=== PATIENT | female | born 1960 | race Caucasian/White ===

== ENCOUNTER 2020-03-31 10:29 | Emergency (ER) | payer MEDICARE, OTHER ==
[~2020-03-31] VITALS: Ht 154.9 cm; Wt 72.0 kg
[2020-03-31 10:55] LABS: BILIRUBIN,URINE NEGATIVE (NEG); CLARITY,URINE CLEAR; COLOR,URINE YELLOW; NITRITE,URINE NEGATIVE (NEG); PROTEIN,URINE NEGATIVE (NEG-TRACE); UROBILINOGEN,URINE 0.2 mg/dL (0.2 mg/dL)
[2020-03-31 11:12] LABS: HYALINE CASTS, URINE FEW /HPF; SQUAMOUS EPITHELIAL CELL,UR MOD /LPF
[2020-03-31 11:13] LABS: BACTERIA,URINE 0 /HPF (0-FEW)
[2020-03-31 11:28] LABS: BASO # 0.1 x10^3/uL (0.0-0.2); BASO % 1 % (0-3); EOS # 0.2 x10^3/uL (0.0-0.7); EOS % 4 % (0-3); HEMATOCRIT 35.2 % (36.0-47.0); HEMOGLOBIN 11.9 g/dL (12.0-15.5); LYMPH # 2.1 x10^3/uL (1.0-4.8); LYMPH % 41 % (24-48); MEAN CORPUSCULAR HEMOGLOBIN 30 pg (25-35); MEAN CORPUSCULAR HGB CONC 34 g/dL (31-37); MEAN CORPUSCULAR VOLUME 88 fL (79-100); MONO # 0.5 x10^3/uL (0.0-1.1); MONO % 9 % (0-9); NEUT # 2.3 x10^3/uL (1.8-7.7); NEUT % 45 % (31-73); PLATELET COUNT 271 x10^3/uL (140-400); RED BLOOD COUNT 3.98 x10^6/uL (3.50-5.40); RED CELL DISTRIBUTION WIDTH 13.9 % (11.5-14.5); WHITE BLOOD COUNT 5.1 x10^3/uL (4.0-11.0)
[2020-03-31 11:33] LABS: CALCIUM 8.4 mg/dL (8.5-10.1); CREATININE 1.2 mg/dL (0.6-1.0); GFR 45.8; POTASSIUM 3.7 mmol/L (3.5-5.1)
[2020-03-31 11:39] LABS: ALBUMIN/GLOBULIN RATIO 0.9 (1.0-1.7); TOTAL BILIRUBIN 0.3 mg/dL (0.2-1.0); TOTAL PROTEIN 6.5 g/dL (6.4-8.2)
[2020-03-31] MEDS ORDERED: IV NORMAL SALINE 1000ML BAG 1,000 ML IV ONE (12:00)
--- NOTE | 2020-03-31 12:03 | RAD ---
EXAM: Chest, single view. HISTORY: Shortness of breath. COMPARISON: None. FINDINGS: A frontal view of the chest is obtained. There is no infiltrate, pleural effusion or pneumothorax. The heart is normal in size. IMPRESSION: No acute pulmonary finding. Electronically signed by: Alison Marie MD (03/31/2020 12:00 PM) [id number]
[2020-03-31 12:08] LABS: C-REACTIVE PROTEIN 18.1 mg/L (0-3.3)
[2020-03-31] MEDS ORDERED: KETOROLAC 30 MG/ML VIAL. IVP ONE (12:15)
[2020-03-31] MEDS ORDERED: DEXAMETHASONE SOD PHOS 4 MG/ML VIAL IVP ONE (13:00)
[2020-03-31 13:30] VITALS: BP 129/77
[2020-03-31] MEDS ORDERED: NITR100C62 PO (13:35)
--- NOTE | 2020-03-31 13:35 | PHYS DOC ---
Past Medical History Past Medical History: COPD, GERD, Hypertension, Hepatitis Past Surgical History: No Surgical History Smoking Status: Current Every Day Smoker Alcohol Use: Sober General Adult EDM: Chief Complaint: URINARY FREQUENCY HPI: HPI: Patient is a 59 year old [f__sex] who presents with [] Review of Systems: Review of Systems: Constitutional: Denies fever or chills. [] Eyes: Denies change in visual acuity. [] HENT: Denies nasal congestion or sore throat. [] Respiratory: Denies cough or shortness of breath. [] Cardiovascular: Denies chest pain or edema. [] GI: Denies abdominal pain, nausea, vomiting, bloody stools or diarrhea. [] : Denies dysuria. [] Musculoskeletal: Denies back pain or joint pain. [] Integument: Denies rash. [] Neurologic: Denies headache, focal weakness or sensory changes. [] Endocrine: Denies polyuria or polydipsia. [] Lymphatic: Denies swollen glands. [] Psychiatric: Denies depression or anxiety. [] Heart Score: Risk Factors: Risk Factors: DM, Current or recent (<one month) smoker, HTN, HLP, family history of CAD, obesity. Risk Scores: Score 0 - 3: 2.5% MACE over next 6 weeks - Discharge Home Score 4 - 6: 20.3% MACE over next 6 weeks - Admit for Clinical Observation Score 7 - 10: 72.7% MACE over next 6 weeks - Early Invasive Strategies Current Medications: Current Medications Medications (Trade) Dose Ordered Sig/Kandy Start Time Stop Time Status Last Admin Dose Admin Dexamethasone Sodium Phosphate (Decadron) 10 mg 1X ONCE 03/31/20 13:00 03/31/20 13:01 DC Ketorolac Tromethamine (Toradol 30mg Vial) 30 mg 1X ONCE 03/31/20 12:15 03/31/20 12:16 DC 03/31/20 12:32 30 MG Sodium Chloride 1,000 ml @ 1,000 mls/hr 1X ONCE 03/31/20 12:00 03/31/20 12:59 DC 03/31/20 12:32 1,000 MLS/HR Allergies: Allergies: Allergies Coded Allergies Type Severity Reaction Last Updated Verified Penicillins Allergy Unknown Rash 03/31/20 Yes aspirin Allergy Unknown Shortness of Air 03/31/20 Yes clarithromycin Allergy Unknown Nausea and Vomiting 03/31/20 Yes morphine Allergy Unknown Hives 03/31/20 Yes Physical Exam: PE: Constitutional: Well developed, well nourished, no acute distress, non-toxic appearance. [] HENT: Normocephalic, atraumatic, bilateral external ears normal, oropharynx moist, no oral exudates, nose normal. [] Eyes: PERRLA, EOMI, conjunctiva normal, no discharge. [] Neck: Normal range of motion, no tenderness, supple, no stridor. [] Cardiovascular:Heart rate regular rhythm, no murmur [] Lungs & Thorax: Bilateral breath sounds clear to auscultation [] Abdomen: Bowel sounds normal, soft, no tenderness, no masses, no pulsatile masses. [] Skin: Warm, dry, no erythema, no rash. [] Back: No tenderness, no CVA tenderness. [] Extremities: No tenderness, no cyanosis, no clubbing, ROM intact, no edema. [] Neurologic: Alert and oriented X 3, normal motor function, normal sensory function, no focal deficits noted. [] Psychologic: Affect normal, judgement normal, mood normal. [] Current Patient Data: Labs: Laboratory Tests Test 03/31/20 10:35 03/31/20 11:10 Urine Collection Type Unknown Urine Color Yellow Urine Clarity Clear Urine pH 6.0 (<5.0-8.0) Urine Specific [place] 1.020 (1.000-1.030) Urine Protein Negative mg/dL (NEG-TRACE) Urine Glucose (UA) Negative mg/dL (NEG) Urine Ketones (Stick) Negative mg/dL (NEG) Urine Blood Negative (NEG) Urine Nitrite Negative (NEG) Urine Bilirubin Negative (NEG) Urine Urobilinogen Dipstick 0.2 mg/dL (0.2 mg/dL) Urine Leukocyte Esterase Negative (NEG) Urine RBC 6-10 /HPF (0-2) Urine WBC 1-4 /HPF (0-4) Urine Squamous Epithelial Cells Mod /LPF Urine Bacteria 0 /HPF (0-FEW) Urine Hyaline Casts Few /HPF Urine Mucus Slight /LPF White Blood Count 5.1 x10^3/uL (4.0-11.0) Red Blood Count 3.98 x10^6/uL (3.50-5.40) Hemoglobin 11.9 g/dL (12.0-15.5) L Hematocrit 35.2 % (36.0-47.0) L Mean Corpuscular Volume 88 fL (79-100) Mean Corpuscular Hemoglobin 30 pg (25-35) Mean Corpuscular Hemoglobin Concent 34 g/dL (31-37) Red Cell Distribution Width 13.9 % (11.5-14.5) Platelet Count 271 x10^3/uL (140-400) Neutrophils (%) (Auto) 45 % (31-73) Lymphocytes (%) (Auto) 41 % (24-48) Monocytes (%) (Auto) 9 % (0-9) Eosinophils (%) (Auto) 4 % (0-3) H Basophils (%) (Auto) 1 % (0-3) Neutrophils # (Auto) 2.3 x10^3/uL (1.8-7.7) Lymphocytes # (Auto) 2.1 x10^3/uL (1.0-4.8) Monocytes # (Auto) 0.5 x10^3/uL (0.0-1.1) Eosinophils # (Auto) 0.2 x10^3/uL (0.0-0.7) Basophils # (Auto) 0.1 x10^3/uL (0.0-0.2) Sodium Level 141 mmol/L (136-145) Potassium Level 3.7 mmol/L (3.5-5.1) Chloride Level 106 mmol/L (98-107) Carbon Dioxide Level 27 mmol/L (21-32) Anion Gap 8 (6-14) Blood Urea Nitrogen 21 mg/dL (7-20) H Creatinine 1.2 mg/dL (0.6-1.0) H Estimated GFR (Cockcroft-Gault) 45.8 BUN/Creatinine Ratio 18 (6-20) Glucose Level 95 mg/dL (70-99) Calcium Level 8.4 mg/dL (8.5-10.1) L Total Bilirubin 0.3 mg/dL (0.2-1.0) Aspartate Amino Transferase (AST) 26 U/L (15-37) Alanine Aminotransferase (ALT) 25 U/L (14-59) Alkaline Phosphatase 88 U/L (46-116) Lactate Dehydrogenase 191 U/L (81-234) Troponin I Quantitative < 0.017 ng/mL (0.000-0.055) C-Reactive Protein, Quantitative 18.1 mg/L (0-3.3) H PC-Rqd-V-Type Natriuretic Peptide 314 pg/mL (0-124) H Total Protein 6.5 g/dL (6.4-8.2) Albumin 3.0 g/dL (3.4-5.0) L Albumin/Globulin Ratio 0.9 (1.0-1.7) L Laboratory Tests 03/31/20 11:10 Laboratory Tests 03/31/20 11:10 Vital Signs: Vital Signs Date Time Temp Pulse Resp B/P (MAP) Pulse Ox O2 Delivery O2 Flow Rate FiO2 03/31/20 10:35 98.5 99 20 127/75 (92) 96 Room Air 98.5 EKG: EKG: [] Radiology/Procedures: Radiology/Procedures: [] Course & Med Decision Making: Course & Med Decision Making Pertinent Labs and Imaging studies reviewed. (See chart for details) Patient is a 59 year old female with a history of COPD, polysubstance abuse, hypertension who presents to the Emergency Room complaining of wheezing, cough, back pain, dark urine, and tongue ulceration. Patient is requesting something for her back pain. She states this has been ongoing for almost two months. Patient is well appearing on exam. She does have an ulceration on her tongue. I have discussed with her that she needs to follow up with her PCP and may need to see an ENT physician for this. Patient got upset and stated, "you don't have one of those here in the Emergency Room." I explained to patient that in the Emergency Room we only have Emergency Physicians and that an ENT is a specialist that she would need to see outpatient for follow up. Given patient's other symptoms, lab work was ordered including lab to risk str atify patient for possible coronavirus 19. Patient did have some wheezing and coughing while I was in the room. UA shows a few white blood cells which will be treated with Macrobid. There is no signs of significant urinary tract infection at this time. It is likely that patient back pain is musculoskeletal in nature. Given that this is been ongoing for 2 months without change it is unlikely that this is acute pathology. Patient has not had any fever, numbness, weakness with her back pain. I have discussed with her that she will need to follow-up with her primary care doctor for further work-up on her back pain. I did recommend steroids for COPD exacerbation given her increased cough and shortness of breath. Patient got very upset at that time and stated "why would you give me steroids when I have osteoarthritis." She then stated "I am allergic to that I can't have it. Actually I'll take it but when I have a bad reaction I am going to chantal you for it." I discussed with patient that if she has concerns about taking steroids we will not prescribe them at this time. She states that she needs something for her back. She got very upset and frustrated yelling at staff. I discussed with patient that at this time everything appears to be normal and she will need to follow up with primary care for further evaluation of her ongoing back pain. Patient's test results and vitals while in the ED were fully reviewed and discussed with the patient. Patient is stable and at this time does not need admission to the hospital. We have discussed strict return precautions and the importance of following up with their Primary Care Physician. Patient stated understanding and was given an opportunity to ask any questions. Patient is in agreement with plan. Gwendolyn Disclaimer: Gwendolyn Disclaimer: This electronic medical record was generated, in whole or in part, using a voice recognition dictation system. Departure Departure Impression: Primary Impression: Back pain Additional Impression: COPD (chronic obstructive pulmonary disease) Disposition: 01 HOME, SELF-CARE Condition: STABLE Referrals: UNKNOWN PCP NAME (PCP) Patient Instructions: Back Pain, Adult, Chronic Obstructive Pulmonary Disease Scripts Nitrofurantoin Monohyd/M-Cryst (MACROBID 100 MG CAPSULE) 100 Mg Capsule 1 CAP PO BID for 7 Days, #14 CAP 0 Refills Prov: HARPREET OAKES MD 03/31/20 Justicifation of Admission Dx: Justifications for Admission: Justification of Admission Dx: N/A HARPREET OAKES MD Mar 31, 2020 13:35
--- NOTE | 2020-04-03 13:23 | NUR ---
IP: Pt returned my call and I informed her of her negative COVID test. pt verbalized understanding.
== END 2020-03-31 13:42 | disposition home or self-care (01) ==
LOC: ER 10:29
DX: J44.9 Chronic obstructive pulmonary disease, unspecified (principal); Z20.828 Contact with and (suspected) exposure to other viral communicable diseases; M54.5 Low back pain; R05 Cough; K21.9 Gastro-esophageal reflux disease without esophagitis; I10 Essential (primary) hypertension; K73.9 Chronic hepatitis, unspecified; F17.200 Nicotine dependence, unspecified, uncomplicated; Z88.0 Allergy status to penicillin; Z88.1 Allergy status to other antibiotic agents; Z88.6 Allergy status to analgesic agent
CPT/HCPCS: 36415; 71045; 80053; 81001; 83615; 83880; 84484; 85025; 86140; 96361; 96374; 99284; J1885; J7030; U0003; 96375

== ENCOUNTER → 2021-08-27 | Outpatient (CLI) | payer OTHER, MEDICAID ==
[~2021-08-27] MED LIST: ACET325T9 PO; AMLO-187 PO; CLON1TAB PO; HYDR12.58 PO; LORA10CA PO; NITR100C62 PO; NORT25CA PO; PANT40TA77 PO; SUCR1TAB PO; VALS320T2 PO
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
== END | disposition home or self-care (01) ==
LOC: PNCL 10:59
PROVIDERS: ATTEND Anesthesiology
DX: M54.2 Cervicalgia (principal); M79.602 Pain in left arm; I10 Essential (primary) hypertension; J44.9 Chronic obstructive pulmonary disease, unspecified; E78.00 Pure hypercholesterolemia, unspecified; M19.90 Unspecified osteoarthritis, unspecified site; M81.0 Age-related osteoporosis without current pathological fracture; F17.210 Nicotine dependence, cigarettes, uncomplicated; Z79.899 Other long term (current) drug therapy; Z90.710 Acquired absence of both cervix and uterus; Z98.890 Other specified postprocedural states; Z88.0 Allergy status to penicillin; Z88.6 Allergy status to analgesic agent; Z88.8 Allergy status to other drugs, medicaments and biological substances
CPT/HCPCS: G0463

== ENCOUNTER 2021-09-08 20:54 | Emergency (ER) | payer OTHER, MEDICAID ==
[~2021-09-08] VITALS: Ht 154.9 cm; Wt 72.8 kg
[2021-09-08] MEDS ORDERED: fentaNYL PF VIAL 100 MCG/2 ML VIAL IM ONE (21:45)
[2021-09-08 22:45] VITALS: BP 114/60
[2021-09-08] MEDS ORDERED: HYDR-2761 PO (23:10)
--- NOTE | 2021-09-08 23:10 | RAD ---
XR RT WRIST 3VIEWS 09/08/2021 10:10 PM INDICATION: Fall, pain COMPARISON: None available. TECHNIQUE: 3 views of the right wrist are provided. FINDINGS/ IMPRESSION: 1. Mildly displaced, comminuted fracture of the distal radial metadiaphysis with intra-articular exte nsion to the radiocarpal joint. There is apex volar angulation. There is associated adjacent soft tis chantal swelling. No radiopaque foreign density. No subcutaneous emphysema. 2. Mildly displaced ulnar styloid process fracture. 3. Carpal bones appear intact. Electronically signed by: Marissa Nguyen MD (09/08/2021 11:08 PM) [facility]
--- NOTE | 2021-09-08 23:11 | PHYS DOC ---
Past Medical History Past Medical History: COPD, GERD, Hypertension, Hepatitis Additional Past Medical Histor: HIATAL HERNIA, OSTEOARTH Past Surgical History: No Surgical History Smoking Status: Current Every Day Smoker Alcohol Use: Sober General Adult EDM: Chief Complaint: WRIST PAIN HPI: HPI: Patient is a 61 year old female who presents to the ED today with moderate pain to the right wrist after falling. Patient states she was making her bed, she turned wrong and fell. Patient denies hitting her head on the ground. Denies any loss of consciousness. She appears lethargic, she states she took clonazepam she was getting ready for bed when she fell. Denies any alcohol use. Review of Systems: Review of Systems: Constitutional: Denies fever or chills. [] Musculoskeletal: Reports right wrist pain. Integument: Denies rash. [] Neurologic: Denies headache, focal weakness or sensory changes. [] Psychiatric: Denies depression or anxiety. [] Heart Score: C/O Chest Pain: N/A Risk Factors: Risk Factors: DM, Current or recent (<one month) smoker, HTN, HLP, family history of CAD, obesity. Risk Scores: Score 0 - 3: 2.5% MACE over next 6 weeks - Discharge Home Score 4 - 6: 20.3% MACE over next 6 weeks - Admit for Clinical Observation Score 7 - 10: 72.7% MACE over next 6 weeks - Early Invasive Strategies Current Medications: Current Medications Medications (Trade) Dose Ordered Sig/Kandy Start Time Stop Time Status Last Admin Dose Admin Fentanyl Citrate (Fentanyl 2ml Vial) 50 mcg 1X ONCE 09/08/21 21:45 09/08/21 21:47 DC 09/08/21 22:25 50 MCG Allergies: Allergies: Allergies Coded Allergies Type Severity Reaction Last Updated Verified Penicillins Allergy Unknown Rash 03/31/20 Yes aspirin Allergy Unknown Shortness of Air 03/31/20 Yes clarithromycin Allergy Unknown Nausea and Vomiting 03/31/20 Yes morphine Allergy Unknown Hives 03/31/20 Yes Physical Exam: PE: Constitutional: Well developed, well nourished, no acute distress, non-toxic appearance. [] Skin: Warm, dry, no erythema, no rash. [] Back: No tenderness, no CVA tenderness. [] Extremities: Right wrist appears obviously deformed. Full range of motion to the right elbow, right fingers. Tenderness diffusely to the right wrist including scaphoid. Adequate radial, median, ulnar sensation to the right fingers. +2 right radial pulse. Cap refill less than 2 seconds to right fingers Neurologic: Alert and oriented X 3, normal motor function, normal sensory function, no focal deficits noted. [] Psychologic: Affect normal, judgement normal, mood normal. [] Current Patient Data: Vital Signs: Vital Signs Date Time Temp Pulse Resp B/P (MAP) Pulse Ox O2 Delivery O2 Flow Rate FiO2 09/08/21 22:25 18 98 Room Air 09/08/21 21:24 97.8 81 113/58 (76) 97.8 EKG: EKG: [] Radiology/Procedures: Radiology/Procedures: []PROCEDURE: WRIST 3V RIGHT XR RT WRIST 3VIEWS 09/08/2021 10:10 PM INDICATION: Fall, pain COMPARISON: None available. TECHNIQUE: 3 views of the right wrist are provided. FINDINGS/ IMPRESSION: 1. Mildly displaced, comminuted fracture of the distal radial metadiaphysis with intra-articular extension to the radiocarpal joint. There is apex volar angulation. There is associated adjacent soft tissue swelling. No radiopaque foreign density. No subcutaneous emphysema. 2. Mildly displaced ulnar styloid process fracture. 3. Carpal bones appear intact. Electronically signed by: Nenita Castrejon MD (09/08/2021 11:08 PM) [facility] DICTATED and SIGNED BY: NENITA CASTREJON MD DATE: 09/08/21 [id number] 0 Course & Med Decision Making: Course & Med Decision Making Pertinent Labs and Imaging studies reviewed. (See chart for details) This is a 61-year-old female presented to the ED today to be evaluated for right wrist pain after falling Right wrist x-rays were reviewed by Dr. Bryson, she requested to put patient in a sugar tong splint. Official read of the right wrist x-rays noted for mildly displaced, comminuted fracture of the distal radial metadiaphysis with intra- articular extension to the radiocarpal joint. There is apex volar angulation. There is associated adjacent soft tissue swelling. No radiopaque foreign density. No subcutaneous emphysema. Mildly displaced ulnar styloid process fracture.Carpal bones appear intact. Patient was placed in a sugar tong splint by the ED RN, neurovascular exam done by me post splinting is normal. Provided orthopedic doctor for follow-up. Ice elevation encouraged Gwendolyn Disclaimer: Gwendolyn Disclaimer: This electronic medical record was generated, in whole or in part, using a voice recognition dictation system. Departure Departure Impression: Primary Impression: Radius fracture Qualified Codes: S52.181A - Other fracture of upper end of right radius, initial encounter for closed fracture Additional Impressions: Fracture of ulnar styloid Qualified Codes: S52.611A - Displaced fracture of right ulna styloid process, initial encounter for closed fracture Fall Qualified Codes: W19.XXXA - Unspecified fall, initial encounter Disposition: HOME / SELF CARE / HOMELESS Condition: STABLE Referrals: ALEXYS PUENTE DO (PCP) FÁTIMA PATEL MD call her office tomorrow and set up a follow up appointment Patient Instructions: Radius Fracture with [facility], Ulnar Fracture Additional Instructions: You have wrist fracture. Please contact the provided orthopedic doctor tomorrow morning and set up a follow-up appointment. Try to ice in the event of extr emity. Scripts Hydrocodone Bit/Acetaminophen (HYDROCODONE-APAP 5-325 ) 1 Tab Tablet 1 TAB PO PRN Q6HRS PRN for PAIN, #14 TAB 0 Refills Prov: CHAU MORTON APRN 09/08/21 CHAU MORTON APRN Sep 08, 2021 23:11
== END 2021-09-08 23:25 | disposition home or self-care (01) ==
LOC: ER 20:54
DX: S52.181A Other fracture of upper end of right radius, initial encounter for closed fracture (principal); S52.611A Displaced fracture of right ulna styloid process, initial encounter for closed fracture; J44.9 Chronic obstructive pulmonary disease, unspecified; K21.9 Gastro-esophageal reflux disease without esophagitis; I10 Essential (primary) hypertension; F17.200 Nicotine dependence, unspecified, uncomplicated; Z88.0 Allergy status to penicillin; Z88.1 Allergy status to other antibiotic agents; Z88.5 Allergy status to narcotic agent; Z88.6 Allergy status to analgesic agent; W18.39XA Other fall on same level, initial encounter; Y93.89 Activity, other specified; Y92.89 Other specified places as the place of occurrence of the external cause; Y99.8 Other external cause status
CPT/HCPCS: 29125; 73110; 96372; 99284; J3010

== ENCOUNTER 2021-09-11 12:52 | Emergency (ER) | payer OTHER ==
[~2021-09-11] VITALS: Ht 154.9 cm; Wt 72.9 kg
[~2021-09-11 12:52] MED LIST changes: +HYDR-2761 PO
[2021-09-11 12:57] VITALS: BP 135/78
--- NOTE | 2021-09-11 13:30 | PHYS DOC ---
Past Medical History Past Medical History: COPD, GERD, Hypertension, Hepatitis Additional Past Medical Histor: HIATAL HERNIA, OSTEOARTH Past Surgical History: No Surgical History Smoking Status: Current Every Day Smoker Alcohol Use: None General Adult EDM: Chief Complaint: UPPER EXTREMITY PAIN HPI: HPI: Patient is a 61-year-old female who presents to the emergency department for increased swelling and blue discoloration to her fingers that started this morning. Patient broke her right wrist and was seen in this emergency department and had a splint placed on September 08. She reports that she saw her primary care provider yesterday for follow-up appointment and she reports that she woke up this morning with swelling and blue discoloration to her fingers. She reports that she called her primary care provider who told her she needed to go to the emergency department immediately. Patient denies any decreased range of motion or decreased sensation to her fingers. Review of Systems: Review of Systems: Musculoskeletal: See HPI Integument: See HPI Neuro see HPI Heart Score: C/O Chest Pain: N/A Risk Factors: Risk Factors: DM, Current or recent (<one month) smoker, HTN, HLP, family h istory of CAD, obesity. Risk Scores: Score 0 - 3: 2.5% MACE over next 6 weeks - Discharge Home Score 4 - 6: 20.3% MACE over next 6 weeks - Admit for Clinical Observation Score 7 - 10: 72.7% MACE over next 6 weeks - Early Invasive Strategies Allergies: Allergies: Allergies Coded Allergies Type Severity Reaction Last Updated Verified Penicillins Allergy Unknown Rash 03/31/20 Yes aspirin Allergy Unknown Shortness of Air 03/31/20 Yes clarithromycin Allergy Unknown Nausea and Vomiting 03/31/20 Yes morphine Allergy Unknown Hives 03/31/20 Yes Physical Exam: PE: Constitutional: Well developed, well nourished, no acute distress, non-toxic appearance. [] HENT: Normocephalic, atraumatic, bilateral external ears normal, oropharynx moist, no oral exudates, nose normal. [] Eyes: PERRL, EOMI, conjunctiva normal, no discharge. [] Neck: Normal range of motion, no stridor Cardiovascular: Normal peripheral perfusion Lungs & Thorax: normal work of breathing, no tachypnea Abdomen: soft and flat Skin: Warm, dry, no erythema, no rash. [] Back: Normal range of motion Extremities: No tenderness, no cyanosis, no clubbing, ROM intact, no edema. [] right hand: mild swelling noted to right hand, blue/purple discoloration noted to hand, rom intact, neuro intact with cap refill less than 3 seconds and strong radial pulse palpated after elastic bandage removed Neurologic: Alert and oriented X 3, normal motor function, normal sensory function, no focal deficits noted. [] Psychologic: Affect normal, judgement normal, mood normal. [] Current Patient Data: Vital Signs: Vital Signs Date Time Temp Pulse Resp B/P (MAP) Pulse Ox O2 Delivery O2 Flow Rate FiO2 09/11/21 12:57 98.1 100 17 135/78 (97) 96 Room Air 98.1 EKG: EKG: [] Radiology/Procedures: Radiology/Procedures: [] Course & Med Decision Making: Course & Med Decision Making Pertinent Labs and Imaging studies reviewed. (See chart for details) Patient presents to the emergency department for increased swelling and blue discoloration to her fingers that started this morning. Patient broke her right wrist and was seen in this emergency department and had a splint placed on September 08. She reports that she saw her primary care provider yesterday for follow-up appointment and she reports that she woke up this morning with swelling and blue discoloration to her fingers. She reports that she called her primary care provider who told her she needed to go to the emergency department immediately. Patient is neurovascularly intact with good range of motion. Patient does not have any pain out of proportion to the area. Patient denies loss of sensation to fingers or parasthesias. Splint was removed and rewrapped looser as the splint may have become too tight. I dsicussed case with supervising physician. Patient reports that her symptoms have improved following the splint adjustment. I discussed with patient all findings and diagnostic testing as well as the need to follow-up with PCP for further evaluation and treatment or return to the ER if any new or worsening symptoms. Strict return precautions were also discussed at length. Patient voiced understanding and agreement with the plan. Patient is hemodynamically stable at the time of disposition. Dragon Disclaimer: Dragon Disclaimer: This electronic medical record was generated, in whole or in part, using a voice recognition dictation system. Departure Departure Impression: Primary Impression: Hand swelling Qualified Codes: M79.89 - Other specified soft tissue disorders Disposition: HOME / SELF CARE / HOMELESS Condition: GOOD Referrals: ALEXYS PUENTE DO (PCP) Patient Instructions: Cast or Splint Care Additional Instructions: You were seen in the emergency department for hand discoloration and swelling. Your splint was rewrapped and you reported improvement in your symptoms. You can take Tylenol and/ibuprofen for your pain. Use elevation to help with swelling. Follow-up with your orthopedic doctor soon as possible. Return to the emergency department if you develop worsening of your pain or increased pain, decreased sensation in your fingers, decreased range of motion or [id number]-[id number] sensation in your fingers. JOE MCCLOUD APRN Sep 11, 2021 13:30
== END 2021-09-11 14:09 | disposition home or self-care (01) ==
LOC: ER 12:52
DX: R22.31 Localized swelling, mass and lump, right upper limb (principal); L81.9 Disorder of pigmentation, unspecified; M25.531 Pain in right wrist; K21.9 Gastro-esophageal reflux disease without esophagitis; I10 Essential (primary) hypertension; J44.9 Chronic obstructive pulmonary disease, unspecified; F17.200 Nicotine dependence, unspecified, uncomplicated; Z88.0 Allergy status to penicillin; Z88.1 Allergy status to other antibiotic agents; Z88.5 Allergy status to narcotic agent; Z88.6 Allergy status to analgesic agent
CPT/HCPCS: 29125; 99282; 99283

== ENCOUNTER → 2021-09-18 | Outpatient (CLI) | payer OTHER, MEDICAID ==
[2021-09-11 12:57] VITALS: BP 135/78
[~2021-09-18] MED LIST changes: +DEXAMETHASONE PRES.FREE 10 MG/ML VIAL. ONE; +IOHEXOL 180 MG/ML 10 ML VIAL. ONE
--- NOTE | 2021-09-18 10:03 | PDOC ---
Progress Note - Pain Clinic Date of Service: DOS: DATE: 09/18/21 TIME: 09:59 Diagnosis: Dx: Cervical radiculopathy with cervical degenerative disease and cervical spinal stenosis History or Present Illness: HPI: 61-year-old female returns with complaints of pain in the base the neck and right greater than left upper extremities patient reports is worse with walking standing change positions reaching weightbearing patient has a fracture her right forearm and wearing a cast now and a sling which is because the pain in the neck to be the worst patient reports is now more noticeable on the right side than it was previously with some pain in the left side as well as the upper back patient rates as a 8 on scale 10 is worse over the past week 7 on average 5 to [place] is a 7 today patient scribes pain is stabbing and constant radiating shooting in the upper extremities again more exacerbated on the right side now than the left. Patient reports no loss of motor function except for the fracture on the right arm is waking her from sleep frequently about every 2 hours. Physical Exam: VS: Blood pressure is 135/78 pulse 74 respirations 18 temperature 90.1 F height 5 foot 1 inches weight is 155 pounds. PE: PHYSICAL EXAMINATION: GENERAL: The patient is awake, alert, oriented, appropriate, very pleasant in demeanor HEENT: Shows normocephalic, atraumatic. Extraocular movements are intact and symmetrical. Oral cavity: Mucous membranes moist and pink. Dentition is intact. NECK: Shows anterior throat supple without palpable lymphadenopathy noted. Swallow reflex symmetrical. CHEST: Shows normal on inspection. Breath sounds are clear bilaterally, distant but no rales rhonchi wheezes auscultated. HEART: Shows S1, S2 clear. No murmurs auscultated. ABDOMEN: Soft, nontender, nondistended. No palpable organomegaly is noted. BACK: Shows spine grossly in the midline. Normal-appearing cervical lordotic curvature. Cervical paraspinous muscles show symmetrical inspection of palpation some moderate tenderness diffusely throughout the middle and lower distribution the paraspinous muscles also into the superior medial trapezius bilaterally but without specific trigger points radiation or atrophy or hypertrophy. Patient shows good rotation of motion cervical spine both laterally as well as extension flexion with only moderate tenderness with extension. There is slightly increased thoracic kyphosis, some minor flattening of the lumbar lordotic curvature. EXTREMITIES: Upper extremities show deep tendon reflexes 2+ in the left biceps and triceps tendons. 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 Patient with cast on the right forearm. Peripheral pulses are 2+ radial. No peripheral edema is noted bilaterally. Upper extremities are warm and dry to touch, equal in color and appearance. SKIN: Shows warm and dry, good turgor. No edema. No sores, rashes or bruising throughout. Procedure: Procedure: Options discussed with patient. Patient's old chart was reviewed with her current medication regimen updated current review of systems updated today as well. We will proceed with a cervical epidural steroid injection today with fluoroscopic guidance risks were discussed including but not limited to: Bleeding, infection, possibility of epidural hematoma and subsequent neurological compromise, dural puncture, headaches, spinal cord and/or nerve damage, side effects of steroid medication, and poor results regarding pain control. Patient understands and wished to proceed. Patient will return to the clinic in approximately 2 weeks for follow-up, was counseled as to return appointment, active level, and side effects beware of. Medication Injected: Med Injected: Procedure cervical epidural steroid injection at the C6-7 level, using local anesthetic under sterile prep and drape using C-arm fluoroscopic guidance under local anesthesia medications injected ; 20 mg dexamethasone +5 mL normal sa line and 2 mL contrast; condition at discharge is stable patient tolerated procedure well. and had no complications Condition at Discharge: Condition at Discharge: Condition at discharge stable, patient tolerated the procedure well and had no complications. MATT LEMONS MD Sep 18, 2021 10:03
--- NOTE | 2021-09-18 10:04 | PDOC4 ---
Procedure Note: ICD 10 Code: ICD 10 Code: M54.12 M50.30 M4 8.02 Procedure Note: Patient was consented for cervical epidural steroid injection with fluoroscopic guidance. Risks were discussed including but not limited to: Bleeding, infection, possibility of epidural hematoma and subsequent neurological compromise, dural puncture, headaches, spinal cord and/or nerve damage, side effects of steroid medication, and poor results regarding pain control. Patient understands and wished to proceed. Procedure cervical epidural steroid injection at the C6-7 level, using local anesthetic under sterile prep and drape using C-arm fluoroscopic guidance under local anesthesia medications injected ; 20 mg dexamethasone +5 mL normal saline and 2 mL contrast; condition at discharge is stable patient tolerated procedure well. and had no complications MATT LEMONS MD Sep 18, 2021 10:04
== END ==
LOC: PNCL 08:37
PROVIDERS: ATTEND Anesthesiology
DX: M54.12 Radiculopathy, cervical region (principal); M48.02 Spinal stenosis, cervical region; M50.10 Cervical disc disorder with radiculopathy, unspecified cervical region; F17.210 Nicotine dependence, cigarettes, uncomplicated; Z79.899 Other long term (current) drug therapy; Z88.0 Allergy status to penicillin; Z88.1 Allergy status to other antibiotic agents; Z88.8 Allergy status to other drugs, medicaments and biological substances
CPT/HCPCS: 62321; J1100; Q9965

== ENCOUNTER → 2021-09-30 | Outpatient (CLI) | payer OTHER, MEDICAID ==
[2021-09-11 12:57] VITALS: BP 135/78
[~2021-09-30] MED LIST changes: -DEXAMETHASONE PRES.FREE 10 MG/ML VIAL. ONE; -IOHEXOL 180 MG/ML 10 ML VIAL. ONE
--- NOTE | 2021-09-30 13:52 | PDOC ---
Progress Note - Pain Clinic Date of Service: DOS: DATE: 09/30/21 TIME: 13:45 Diagnosis: Dx: Cervical radiculopathy with cervical degenerative disease and cervical spinal stenosis History or Present Illness: HPI: 61-year-old female returns after cervical epidural steroid injection x1. Patient reports about 75% improvement initially now coming back to about a 50% level overall for the past 2 weeks, with pain in the neck as well as in the bilateral upper extremities right greater than left. Patient reports still some pain in the left arm which is more noticeable now that the right arm is feeling somewhat better also has recent fracture of the right wrist and still wearing a brace on the right wrist and is been using her left arm to compensate for the right when as she is right-handed and this seems to be increasing the pain on the left side due to this as well patient reports her pain is a 6-7 on scale 10 is worst least and average and is 6-7 today prescribed is aching and shooting constant and radiating the upper extremity also into the hand on the right side of the fingers thumb and first finger with some tingling and numbness as well patient reports is worse with repetitive motion she is doing physical therapy for the wrist fracture and they are working with her shoulders as well she reports which is not decrease the pain significantly but has her hand feeling somewhat better on the right side only. Patient reports no deficits and no bowel or bladder incontinence. Physical Exam: VS: Is 135/86 pulse 80 respirations 16 temperature 98.0 F weight is 153 pounds. PE: PHYSICAL EXAMINATION: GENERAL: The patient is awake, alert, oriented, appropriate, very pleasant in demeanor HEENT: Shows normocephalic, atraumatic. Extraocular movements are intact and symmetrical. Patient wearing eyeglasses. Oral cavity: Mucous membranes moist and pink. Dentition is intact. NECK: Shows anterior throat supple without palpable lymphadenopathy noted. Swallow reflex symmetrical. CHEST: Shows normal on inspection. Breath sounds are clear bilaterally. HEART: Shows S1, S2 clear. No murmurs auscultated. ABDOMEN: Soft, nontender, nondistended. No palpable organomegaly is noted. BACK: Shows spine grossly in the midline. Normal-appearing cervical lordotic curvature. Cervical paraspinous muscles show symmetrical inspection, on palpation shows moderate tenderness diffusely in the inferior aspect of the cervical paraspinous muscular slightly more on the right than the left present bilaterally patient shows good rotation motion cervical spine both laterally as well as extension flexion without significant difficulty or limitation. There is slightly increased thoracic kyphosis, some minor flattening of the lumbar lordotic curvature. EXTREMITIES: Upper extremities show deep tendon reflexes 2+ in the biceps and triceps tendons. 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 Peripheral pulses are 2+ radial. No peripheral edema is noted bilaterally. Upper extremities are warm and dry to touch, equal in color and appearance. SKIN: Shows warm and dry, good turgor. No edema. No sores, rashes or bruising throughout. Procedure: Procedure: Options were discussed with the patient. Patient chart reviews her current medication regimen updated current review of systems updated today as well. We will preauthorize patient for a second cervical epidural steroid injection as he is doing very well with first injection with about 75% improvement initially now about 50% overall with still with radicular pain in a C6-7 dermatomal distribution bilaterally worse on the right than the left. In the meantime, patient will continue with stretching and strengthening, and physical therapy s essions as currently scheduled as well as oral analgesics as currently as well. Once approved, patient will return for a translaminar approach C6-7 level cervical epidural steroid injection with fluoroscopic guidance. Medication Injected: Med Injected: None Condition at Discharge: Condition at Discharge: Condition at discharge is stable. MATT LEMONS MD Sep 30, 2021 13:52
== END | disposition home or self-care (01) ==
LOC: PNCL 13:18
PROVIDERS: ATTEND Anesthesiology
DX: M50.10 Cervical disc disorder with radiculopathy, unspecified cervical region (principal); M48.02 Spinal stenosis, cervical region; F17.210 Nicotine dependence, cigarettes, uncomplicated; Z88.0 Allergy status to penicillin; Z88.6 Allergy status to analgesic agent; Z88.8 Allergy status to other drugs, medicaments and biological substances
CPT/HCPCS: 99212; G0463

== ENCOUNTER 2021-10-03 16:51 | Emergency (ER) | payer OTHER, MEDICAID ==
[~2021-10-03] VITALS: Ht 154.9 cm; Wt 72.6 kg
[2021-10-03 17:00] VITALS: BP 145/95
[2021-10-03] MEDS: HYDROcodone/APAP 10/325 1 TAB TABLET PO ONE (17:29)
[2021-10-03] MEDS ORDERED: HYDR-2761 PO ×2 (17:34→17:38)
--- NOTE | 2021-10-03 17:41 | PHYS DOC ---
Past Medical History Past Medical History: COPD, GERD, Hypertension, Hepatitis Additional Past Medical Histor: OSTEOARTHRITIS, RLS Past Surgical History: Hip Replacement, Other Additional Past Surgical Histo: RIGHT AND LEFT HIP REPLACEMENT, SINUS SX, HIATAL HERNIA SX Smoking Status: Current Every Day Smoker Additional Information: 1/3 PACK/DAY Alcohol Use: None General Adult EDM: Chief Complaint: PAIN CONTROL HPI: HPI: Patient is a 61 year old female who presents with right hand pain. Patient fractured her hand 1 month ago and has been seeing physical therapy. Patient states that she has ran out of her hydrocodone and is unable to follow-up with her PCP until Wednesday. Patient denies any new injury. History of hypertension, COPD, GERD. Review of Systems: Review of Systems: ROS At least 10 ROS systems have been reviewed and are negative except as documented in the HPI. General: Negative except as outlined in HPI above. Skin: Negative except as outlined in HPI above. HEENT: Negative except as outlined in HPI above. Neck: Negative except as outlined in HPI above. Respiratory: Negative except as outlined in HPI above.. Cardiovascular: Negative except as outlined in HPI above. Abdomen: Negative except as outlined in HPI above. : Negative except as outlined in HPI above. Back/MSK: Negative except as outlined in HPI above. Neuro: Negative except as outlined in HPI above. Psych: Negative except as outlined in HPI above. Heart Score: C/O Chest Pain: No Risk Factors: Risk Factors: DM, Current or recent (<one month) smoker, HTN, HLP, family history of CAD, obesity. Risk Scores: Score 0 - 3: 2.5% MACE over next 6 weeks - Discharge Home Score 4 - 6: 20.3% MACE over next 6 weeks - Admit for Clinical Observation Score 7 - 10: 72.7% MACE over next 6 weeks - Early Invasive Strategies Current Medications: Current Medications Medications (Trade) Dose Ordered Sig/Kandy Start Time Stop Time Status Last Admin Dose Admin Acetaminophen/ Hydrocodone Bitart (Lortab 10/325) 1 tab 1X ONCE 10/03/21 17:45 10/03/21 17:46 Allergies: Allergies: Allergies Coded Allergies Type Severity Reaction Last Updated Verified Penicillins Allergy Unknown Rash 03/31/20 Yes aspirin Allergy Unknown Shortness of Air 03/31/20 Yes clarithromycin Allergy Unknown Nausea and Vomiting 03/31/20 Yes morphine Allergy Unknown Hives 03/31/20 Yes Physical Exam: PE: Constitutional: Well developed, well nourished, no acute distress, non-toxic appearance. [] HENT: Normocephalic, atraumatic, bilateral external ears normal, oropharynx moist, no oral exudates, nose normal. [] Eyes: PERRLA, EOMI, conjunctiva normal, no discharge. [] Neck: Normal range of motion, no tenderness, supple, no stridor. [] Cardiovascular:Heart rate regular rhythm, no murmur [] Lungs & Thorax: Bilateral breath sounds clear to auscultation [] Abdomen: Bowel sounds normal, soft, no tenderness, no masses, no pulsatile masses. [] Skin: Warm, dry, no erythema, no rash. [] Back: No tenderness, no CVA tenderness. [] Extremities: Right hand pain, ROM intact, radial pulses intact, no swelling Neurologic: Alert and oriented X 3, normal motor function, normal sensory function, no focal deficits noted. [] Psychologic: Affect normal, judgement normal, mood normal. [] Current Patient Data: Vital Signs: Vital Signs Date Time Temp Pulse Resp B/P (MAP) Pulse Ox O2 Delivery O2 Flow Rate FiO2 10/03/21 17:00 97.7 96 22 145/95 (112) 94 Room Air 97.7 EKG: EKG: [] Radiology/Procedures: Radiology/Procedures: [] Course & Med Decision Making: Course & Med Decision Making Pertinent Labs and Imaging studies reviewed. (See chart for details) [] 61-year-old female presents with right hand pain after fracturing her hand last month. Patient states she is off of pain medication and will not be able to make it until Wednesday to follow-up with PCP. Patient given pain medication while in the ER to treat pain. Sending patient home with prescription until she can follow-up Wednesday. Patient is appreciative and okay with discharge plan. Gwendolyn Disclaimer: Gwendolyn Disclaimer: This electronic medical record was generated, in whole or in part, using a voice recognition dictation system. Departure Departure Impression: Primary Impression: Inadequate pain control Disposition: HOME / SELF CARE / HOMELESS Condition: STABLE Referrals: ALEXYS PUENTE DO (PCP) Patient Instructions: Hand Injuries, [id number] Additional Instructions: You are seen the emergency room for hand pain. You are sent home with some pain medication taken follow-up with your PCP. You were also given pain medication while in the ER. Return to the emergency room with worsening symptoms or concerns. Otherwise follow-up with Dr. Mejia on Wednesday. EMERGENCY DEPARTMENT GENERAL DISCHARGE INSTRUCTIONS Thank you for coming to [facility] Emergency Department (ED) today and trusting us with you care. We trust that you had a positive experience in our Emergency Department. If you wish to speak to the department management, you may call the Director at [phone]. YOUR FOLLOW UP INSTRUCTIONS ARE FOLLOWS: 1. Do you have a private Doctor? If you do not have a private doctor, please ask for a resource list of physicians or clinics that may be able to assist you with foll ow up care. 2. The Emergency Physicain has interpreted your x-rays. The X-Ray specialist will also review them. If there is a change in the findings, you will be notified in 48 hours when at all possible. 3. A lab test or culture has been done, your results will be reviewed and you will be notified if you need a change in treatment. ADDITIONAL INSTRUCTIONS AND INFORMATION: 1. Your care today has been supervised by a physician who is specially trained in emergency care. Many problems require more than one evaluation for a complete diagnosis and treatment. We recommend that you schedule your follow up appointment as re commended to ensure complete treatment of you illness or injury. If you are unable to obtain follow up care and continue to have a problem, or if your condition worsens, we recommend that you return to the ED. 2. We are not able to safely determine your condition over the phone nor are we able to give sound medical advice over the phone. For these safety reasons, if you call for medical advice we will ask you to come to the ED for further evaluation. 3. If you have any questions regarding these discharge instructions please call the ED at [phone]. SAFETY INFORMATION: In the interest of safety, wellness, and injury prevention; we encourage you to wear your sealbelt, if you smoke; quite smoking, and we encourage family to use a protective helmet for bicycling and other sporting events that present an increased risk for head injury. IF YOUR SYMPTOMS WORSEN OR NEW SYMPTOMS DEVELOP, OR YOU HAVE CONCERNS ABOUT YOUR CONDITION; OR IF YOUR CONDITION WORSENS WHILE YOU ARE WAITING FOR YOUR FOLLOW UP APPOINTMENT; EITHER CONTACT YOUR PRIMARY CARE DOCTOR, THE PHYSICIAN WHOSE NAME AND NUMBER YOU WERE GIVEN, OR RETURN TO THE ED IMMEDIATELY. Scripts Hydrocodone Bit/Acetaminophen (HYDROCODONE-APAP 5-325 ) 1 Tab Tablet 1 TAB PO PRN Q6HRS PRN for PAIN for 3 Days, #10 TAB 0 Refills Prov: BREANNE BEGUM APRN 10/03/21 BREANNE BEGUM APRN Oct 03, 2021 17:41
== END 2021-10-03 17:51 | disposition home or self-care (01) ==
LOC: ER 16:51
DX: M79.641 Pain in right hand (principal); K21.9 Gastro-esophageal reflux disease without esophagitis; I10 Essential (primary) hypertension; J44.9 Chronic obstructive pulmonary disease, unspecified; F17.200 Nicotine dependence, unspecified, uncomplicated; Z88.0 Allergy status to penicillin; Z88.1 Allergy status to other antibiotic agents; Z88.5 Allergy status to narcotic agent; Z88.6 Allergy status to analgesic agent
CPT/HCPCS: 99283

== ENCOUNTER → 2021-10-15 | Outpatient (CLI) | payer OTHER, MEDICAID ==
[2021-10-03 17:00] VITALS: BP 145/95
--- NOTE | 2021-10-15 13:00 | PDOC ---
Progress Note - Pain Clinic Date of Service: DOS: DATE: 10/15/21 TIME: 12:55 Diagnosis: Dx: Cervical radiculopathy with cervical degenerative disease and cervical spinal stenosis History or Present Illness: HPI: 61-year-old female returns for follow-up status post cervical epidural steroid injection x1 last on September 18, 2021 patient reports about 75% improvement initially now about 50% improvement overall with pain the base the neck and the left shoulder also some pain in the upper back and into the low back as well since her last visit patient reports that her left arm is her chief complaint however she feels she is overusing it as she has a fracture her right wrist and is wearing a cast on it today as well patient reports her pain is 8 on scale 10 is worse over the past week 6 on average 5 to [place] is a 6 today patient scribes it can go numb in the left wrist and hand with repetitive motion also pain in the elbow but pain radiating into the base of the shoulder and into the triceps region forearm and into the hand with some numbness once again in the fingers as described patient reports on and off in intensity worse with activity reaching repetitive motions reaching forward reaching overhead with the left arm patient reports no loss of motor function but significant fatigability with the left upper extremity. Physical Exam: VS: Blood pressure is 129/77 pulse 93 respirations 18 temperature 98.2 F weight is 151 pounds. PE: PHYSICAL EXAMINATION: GENERAL: The patient is awake, alert, oriented, appropriate, very pleasant in demeanor HEENT: Shows normocephalic, atraumatic. Extraocular movements are intact and symmetrical. Patient wearing eyeglasses. NECK: Shows anterior throat supple without palpable lymphadenopathy noted. Swallow reflex symmetrical. CHEST: Shows normal on inspection. Breath sounds are clear bilaterally. HEART: Shows S1, S2 clear. No murmurs auscultated. ABDOMEN: Soft, nontender, nondistended. No palpable organomegaly is noted. No rebound or guarding demonstrated. BACK: Shows spine grossly in the midline. Normal-appearing cervical lordotic curvature. Cervical paraspinous muscles show symmetrical inspection, on palpation some moderate tenderness diffusely throughout the upper middle lower decrease the paraspinous muscles more on the left than the right but present bilaterally also in the superior medial trapezius on the left with moderate tenderness without specific trigger points or radiation. Patient does show good rotation of motion of the cervical spine with slightly guarded with right and left lateral rotation but performs past 45 degrees closer to 90 degrees as well as full extension full forward flexion without significant pain reported. There is slightly increased thoracic kyphosis, some minor flattening of the lumbar lordotic curvature. EXTREMITIES: Upper extremities show deep tendon reflexes 2+ in the biceps and tr iceps tendons. 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 Peripheral pulses are 1+ radial. No peripheral edema is noted bilaterally. Upper extremities are warm and dry to touch, equal in color and appearance. SKIN: Shows warm and dry, good turgor. No edema. No sores, rashes or bruising throughout. Procedure: Procedure: Options discussed with patient. Patient's old chart was reviewed as was her current medication regimen updated current review of systems updated today as well. Patient is doing fairly well today she reports she would like to wait on next injection although she is preauthorized for this. Patient will follow up with her orthopedist regarding the right wrist fracture and is due for more x- rays coming up soon as well as continue with therapy which he is going to later today. Patient was encouraged to maintain stretching and strength exercises with the neck and shoulders as well as the left upper extremity. Patient also taking Tylenol as needed and will continue as well. Patient will return at this time on and as as-needed basis. Medication Injected: Med Injected: None Condition at Discharge: Condition at Discharge: Condition at discharge is stable. MATT LEMONS MD Oct 15, 2021 13:00
== END | disposition home or self-care (01) ==
LOC: PNCL 11:02
PROVIDERS: ATTEND Anesthesiology
DX: M50.10 Cervical disc disorder with radiculopathy, unspecified cervical region (principal); M48.02 Spinal stenosis, cervical region; F17.210 Nicotine dependence, cigarettes, uncomplicated; Z79.899 Other long term (current) drug therapy; Z88.0 Allergy status to penicillin; Z88.6 Allergy status to analgesic agent; Z88.8 Allergy status to other drugs, medicaments and biological substances
CPT/HCPCS: 99212; G0463